=== PATIENT | female | born 1945 | race Caucasian/White ===

== ENCOUNTER 2019-05-24 14:21 | Inpatient (IN) | payer OTHER, BC ==
[~2019-05-24] VITALS: Ht 121.9 cm; Wt 5.0 kg
[2019-05-24] MEDS ORDERED: PLAVIX75 MG PO (14:37)
[2019-05-24] MEDS ORDERED: OMEPRAZOLE MAGN20 MG PO (14:38)
[2019-05-24] MEDS ORDERED: LIPITOR20 MG PO (14:38)
[2019-05-24] MEDS ORDERED: ISOSORBIDE DINI30 MG PO (14:39)
[2019-05-24] MEDS ORDERED: NEURONTIN800 MG PO (14:39)
[2019-05-24] MEDS ORDERED: LEVSIN0.125 MG (14:40)
[2019-05-24] MEDS ORDERED: NITRO-TIME2.5 MG PO (14:40)
[2019-05-24] MEDS ORDERED: TOPROL XL25 M1 PO (14:41)
--- NOTE | 2019-05-24 14:50 | NUR ---
PTE REFIERE DOLOR CORPORAL POR HACER FUERZAS EN EL HOGAR.
--- NOTE | 2019-05-24 15:24 | NUR ---
BAJO MEDIDAS ASEPTICAS AL PACIENTE SE LE VIOLET MUESTRA DE MELL PARA REALIZAR TROPONINA LAB. MCKAYLA ORDEN MEDICA SE LE ADMINISTRA TORADOL EN GLUTEO DERECHO SUPERIOR.
--- NOTE | 2019-05-24 17:23 | NUR ---
SE RECIBE FEMINA ALERTA Y ORIENTADA CON CHEST PAIN Y TROPONINAS ELEVADAS. BAJO MEDIDAS ASEPTICAS SE CANALIZA CON ANGIO #18 EN ANTEBRAZO LT SE JORGE MUESTRAS DE LABORATOROS Y SE ADMINISTRAN MEDICAMENTOS. ORDENES TOMADAS Y EJECUTADAS POR RN: Briseida CUADRA. TRIDIL 50MG/250ML AT 3 ML/HRS EN [place] RESULTADOS DE LABORATORIO PARA SER EVALUADOS POR EL MEDICO. AL OMENTO PACIENTE ESTABLE DENTRO DE [place] CONDICION. CONECTADO AL MONITOR CARDIACO PRESENTANDO VALORES DENTRO DE LOS PARAMETROS.
== END 2019-05-27 15:20 | disposition designated cancer center or children's hospital (05) | DRG 281 ==
LOC: ER 14:21 → ICU 18:22 → ICU-2 18:22 → ICU 05-25 17:48
PROVIDERS: ADMIT Internal Medicine
PROC: B246ZZZ Ultrasonography of Right and Left Heart (ICD-10-PCS; principal; 2019-05-25)
DX: I21.4 Non-ST elevation (NSTEMI) myocardial infarction (principal); I25.810 Atherosclerosis of coronary artery bypass graft(s) without angina pectoris; I11.9 Hypertensive heart disease without heart failure; I08.0 Rheumatic disorders of both mitral and aortic valves; E11.40 Type 2 diabetes mellitus with diabetic neuropathy, unspecified; Z79.4 Long term (current) use of insulin